=== PATIENT | female | born 1980 | race Caucasian/White ===

== ENCOUNTER 2016-10-04 11:48 | Emergency (ER) | payer MEDICAID, OTHER ==
[~2016-10-04] VITALS: Ht 162.6 cm; Wt 71.5 kg
[2016-10-04 11:50] VITALS: Ht 162.6 cm; Wt 71.5 kg
[2016-10-04] MEDS ORDERED: KETOROLAC 60 MG INJ IM STA (12:07)
[2016-10-04] MEDS ORDERED: HYDROCODONE/APAP (5/325) TAB PO ONE (12:30)
--- NOTE | 2016-10-04 12:43 | RADRPT ---
PROCEDURE: XR Cervical Spine. CLINICAL INDICATION: C-spine pain TECHNIQUE: Three views of the cervical spine were performed. The images were reviewed on a PACS KDS. COMPARISON: None. FINDINGS: The vertebral body heights are preserved. There are no acute fractures. Alignment is maintained. T he disk spaces are maintained. The facet joints are intact. The C1-C2 articulation is intact. The prevertebral soft tissues are within normal limits. RPTAT: EMIGDIO IMPRESSION: 1. Unremarkable cervical spine x-rays series. .Yakelin Oropeza MD, MD Date Time Electronically viewed and signed by .Yakelin Oropeza MD, on 10/04/2016 12:43 .T/
[2016-10-04] MEDS ORDERED: DIAZ-90 PO (13:23)
[2016-10-04] MEDS ORDERED: IBUP-1542 PO (13:23)
--- NOTE | 2016-10-04 13:34 | ERD ---
ER Documentation Chief Complaint Date/Time DATE: 10/04/16 TIME: 13:32 Chief Complaint pt bib family with c/o neck pain since yesterday am, right sided pain HPI This 36-year-old female presents with neck pain started yesterday morning upon awakening. She has a history of trauma, fevers, weakness, chest pain, bowel or bladder incontinence. ROS All systems reviewed and are negative except as per history of present illness. Medications Home Meds Active Scripts Diazepam* (Valium*) 5 Mg Tablet, 5 MG PO Q8, #14 TAB Prov:MERARI CANALES MD 10/04/16 Ibuprofen* (Motrin*) 600 Mg Tab, 600 MG PO Q6, #20 TAB Prov:MERARI CANALES MD 10/04/16 Allergies Allergies: Coded Allergies: No Known Allergy (Unverified , 10/04/16) PMhx/Soc Medical and Surgical Hx: pt denies Medical Hx History of Surgery: Yes (gall bladder) Hx Alcohol Use: No Hx Substance Use: No Hx Tobacco Use: No Smoking Status: Never smoker Physical Exam Vitals Vital Signs Date Time Temp Pulse Resp B/P Pulse Ox O2 Delivery O2 Flow Rate FiO2 10/04/16 11:50 97.1 81 18 135/71 98 Physical Exam Const: [] Alert, [id number]. Head: Atraumatic Eyes: Normal Conjunctiva ENT: Normal External Ears, Nose and Mouth. Neck: Full range of motion..~ No meningismus.. Tenderness primarily in the right cervical paraspinous muscles. No midline tenderness or deformities. Resp: Clear to auscultation bilaterally Cardio: Regular rate and rhythm, no murmurs Abd: Soft, non tender, non distended. Normal bowel sounds Skin: No petechiae or rashes Back: No midline or flank tenderness Ext: No cyanosis, or edema Neur: Awake and alert. Cranial nerves II through XII grossly intact Psych: Normal Mood and Affect Results 24 hrs Current Medications Medications (Trade) Dose Ordered Sig/George Route PRN Reason Start Time Stop Time Status Last Admin Dose Admin Ketorolac Tromethamine (Toradol) 60 mg ONCE STAT IM 10/04/16 12:07 10/04/16 12:08 DC 10/04/16 12:42 Acetaminophen/ Hydrocodone Bitart ([place] (5/325)) 1 tab ONCE ONCE PO 10/04/16 12:30 10/04/16 12:31 DC 10/04/16 12:42 Procedures/MDM X-ray C spine 3V Interpreted by me: Bones: [No fracture] Joints: No dislocation Foreign body: None. Impression-normal cervical spine x-ray Patient was given Toradol 60 mg IM and [place] 5 mg by mouth. Patient presents with nontraumatic right-sided neck pain without evidence of meningitis, epidural abscess, bacterial infection, fracture, dislocation, neurologic deficit. She likely has musculoskeletal strain or spasm possibly due to sleeping position. Patient will be treated with a short course of Valium and ibuprofen was placed in a soft c-collar. Patient is neurovascular intact after the c-collar. The patient was stable with no new complaints during the ER course. Clinically, there is no current evidence to suggest meningitis, sepsis, acute abdomen, pneumonia, acute coronary syndrome, pulmonary embolism, or any other emergent condition appearing to require further evaluation or hospitalization. The patient should certainly return for any new or worsening symptoms per the aftercare instructions. They should otherwise follow-up with her primary care doctor for reevaluation this week. Departure Diagnosis: Primary Impression: Neck pain Condition: Stable Patient Instructions: Neck Pain, No Trauma Additional Instructions: X RAY NORMAL. PROBABLAMENTE UN CALAMBRA DE MUSCULO. Examines normal hoy. Cheque otro vez con ornelas doctor primario en el proximo saldana or regresa para mas o nueva simptomas. MERARI CANALES MD October 04, 2016 13:34
[2016-10-04 14:14] VITALS: BP 133/65; PULSE 62; RESP 18
== END 2016-10-04 14:17 | disposition home or self-care (01) ==
LOC: FTE 11:48
DX: M54.2 Cervicalgia (principal)
CPT/HCPCS: 72040; 96372; 99284; J1885